=== PATIENT | female | born 1995 | race Caucasian/White ===

== ENCOUNTER 2023-01-07 07:48 | Outpatient (CLI) | payer OTHER ==
[2023-01-07 08:29] LABS: GTT GLUCOSE,FASTING 103 mg/dL (70-100)
[2023-01-07 09:38] LABS: BASOPHILS % (AUTO) 0.5 %; EOSINOPHILS # (AUTO) 0.3 10^3/uL (0.0-0.7); EOSINOPHILS % (AUTO) 4.4 %; HCT - HEMATOCRIT 40.4 % (37.0-47.0); HGB - HEMOGLOBIN 12.8 g/dL (12.0-16.0); LYMPHOCYTES # (AUTO) 2.1 10^3/uL (1.5-3.5); LYMPHOCYTES % (AUTO) 34.4 %; MEAN CORPUSCULAR HEMOGLOBIN 28.8 pg (27.0-31.0); MEAN CORPUSCULAR HGB CONC 31.7 g/dL (32.0-36.0); MEAN CORPUSCULAR VOLUME 90.8 fL (81.0-99.0); MEAN PLATELET VOLUME 10.6 fL (7.9-10.8); MONOCYTES # (AUTO) 0.3 10^3/uL (0.0-1.0); MONOCYTES % (AUTO) 4.8 %; NEUTROPHILS # (AUTO) 3.4 10^3/uL (1.5-6.6); NEUTROPHILS % (AUTO) 55.6 %; PLT - PLATELET COUNT 313 10^3/uL (130-450); RED BLOOD COUNT 4.45 10^6/uL (4.20-5.40); RED CELL DISTRIBUTION WIDTH 13.4 % (12.0-15.0); WHITE BLOOD COUNT 6.1 x10^3/uL (4.8-10.8)
[2023-01-07 10:05] LABS: CORTISOL 5.6 ug/dL
[2023-01-07 10:06] LABS: T4 (THYROXINE) 8.63 ug/dL (6.09-12.23)
[2023-01-07 10:07] LABS: THYROID STIMULATING HORMONE 0.9 uIU/mL (0.34-5.60)
[2023-01-07 10:12] LABS: FREE T4 (FREE THYROXINE) 0.8 ng/dL (0.58-1.64)
[2023-01-07 10:13] LABS: PROLACTIN 7.96 ng/mL
[2023-01-07 10:35] LABS: FOLLICLE STIMULATING HORMONE 6.79 mIU/mL
[2023-01-07 10:36] LABS: LUTEINIZING HORMONE 5.48 mIU/mL
[2023-01-07 10:49] LABS: ALBUMIN 3.7 g/dL (3.2-5.5); ALBUMIN/GLOBULIN RATIO 0.9 (1.0-2.2); BILIRUBIN,TOTAL 0.3 mg/dL (0.2-1.0); CALCIUM 8.9 mg/dL (8.5-10.3); CREATININE 0.6 mg/dL (0.4-1.0); POTASSIUM 3.7 mmol/L (3.5-5.0); TOTAL PROTEIN 7.6 g/dL (6.7-8.2)
[2023-01-07 11:15] LABS: ESTIMATED AVERAGE GLUCOSE 114 mg/dL (70-100); HEMOGLOBIN A1c% 5.6 % (4.27-6.07)
[2023-01-08 07:10] LABS: ESTRADIOL 19.3 pg/mL (.)
[2023-01-08 08:10] LABS: VITAMIN D 25-HYDROXY 20.6 ng/mL (30.0-100.0)
[2023-01-08 18:08] LABS: THYROGLOBULIN ANTIBODY <1.0 IU/mL (0.0-0.9); THYROID PEROXIDASE (TPO) AB 14 IU/mL (0-34)
[2023-01-08 20:07] LABS: SEX HORM BINDING GLOB SERUM 18.1 nmol/L (24.6-122.0); TESTOSTERONE 22 ng/dL (13-71)
[2023-01-15 13:10] LABS: REVERSE T3 SERUM 15.6 ng/dL (.)
== END 2023-01-07 07:49 | disposition home or self-care (01) ==
LOC: LAB 07:48
PROVIDERS: ATTEND Physician Assistant
DX: N94.6 Dysmenorrhea, unspecified (principal)
CPT/HCPCS: 36415; 80053; 81599; 82306; 82533; 82627; 82670; 82951; 83001; 83002; 83036; 83498; 84146; 84270; 84402; 84403; 84436; 84439; 84443; 84480; 84482; 85025; 86376; 86800

== ENCOUNTER 2023-01-22 22:13 | Outpatient (CLI) | payer OTHER ==
--- NOTE | 2023-01-23 03:25 | Ultrasound Report ---
PROCEDURE: Pelvic w/Transvaginal INDICATIONS: DYSMENORRHEA, UNSPECIFIED TECHNIQUE: Real-time scanning was performed of the pelvic organs, with image documentation. Additional endovagi nal scanning was necessary due to incomplete visualization of the adnexal and endometrial structures by transabdominal scanning. COMPARISON: None. FINDINGS: Evaluation limited by body habitus. Uterus: Uterus is anteverted/vertebral and measures approximately 5.3 x 2.6 x 3.9 cm. The nature hardy sures up to 1.0 cm in thickness. Ovaries: The right ovary measures approximately 2.3 x 2.2 x 2 cm, with a calculated ovarian volume o f 5.5 cc but is not well seen. The left ovary was not discretely visualized. No adnexal masses ident ified. Other: No pathologic free abdominal or pelvic fluid. There is a nonspecific oval hypoechoic cystic l esion along the midline in the pelvis and this appears to the bladder suggestive of a urachal cyst gi xin its location. IMPRESSION: 1. Limited study with the left ovary not identified and right ovary suboptimally imaged. No definite adnexal masses. 2. Small oval cystic lesion along the midline in the pelvis superior to the bladder is nonspecific bu t suggestive of a urachal cyst given its location. Reviewed by: Carlton Yang MD on 01/23/2023 3:23 AM PDT Approved by: Carlton Yang MD on 01/23/2023 3:23 AM PDT Station ID: [id number]
== END 2023-01-22 22:14 | disposition home or self-care (01) ==
LOC: DI 22:13
PROVIDERS: ATTEND Physician Assistant
DX: N94.6 Dysmenorrhea, unspecified (principal); R93.5 Abnormal findings on diagnostic imaging of other abdominal regions, including retroperitoneum

== ENCOUNTER 2023-02-09 12:45 | Outpatient (CLI) | payer OTHER | END 2023-02-09 13:00 | disposition home or self-care (01) | LOC: LAB.N 12:45 | PROVIDERS: ATTEND Registered Nurse | DX: Z32.00 Encounter for pregnancy test, result unknown (principal) | CPT/HCPCS: 36415; 84702 ==

== ENCOUNTER 2023-02-11 07:57 | Outpatient (CLI) | payer OTHER ==
[2023-02-11 12:22] LABS: ESTIMATED AVERAGE GLUCOSE 108 mg/dL (70-100); HEMOGLOBIN A1c% 5.4 % (4.27-6.07)
[2023-02-12 07:10] LABS: PROGESTERONE 11.8 ng/mL (.)
== END 2023-02-11 07:58 | disposition home or self-care (01) ==
LOC: LAB.N 07:57
PROVIDERS: ATTEND Physician Assistant
DX: O00.91 Unspecified ectopic pregnancy with intrauterine pregnancy (principal); O36.51 Maternal care for known or suspected placental insufficiency; O99.891 Other specified diseases and conditions complicating pregnancy; E88.81 Metabolic syndrome and other insulin resistance
CPT/HCPCS: 36415; 82670; 83036; 83525; 84144; 84443; 84702

== ENCOUNTER 2023-02-18 07:21 | Outpatient (CLI) | payer OTHER ==
[2023-02-19 07:10] LABS: PROGESTERONE 22.7 ng/mL (.)
== END 2023-02-18 07:22 | disposition home or self-care (01) ==
LOC: LAB.N 07:21
PROVIDERS: ATTEND Physician Assistant
DX: O09.91 Supervision of high risk pregnancy, unspecified, first trimester (principal); O36.51 Maternal care for known or suspected placental insufficiency; O99.281 Endocrine, nutritional and metabolic diseases complicating pregnancy, first trimester; E88.81 Metabolic syndrome and other insulin resistance
CPT/HCPCS: 36415; 82670; 84144; 84702

== ENCOUNTER 2023-03-09 07:41 | Outpatient (CLI) | payer OTHER ==
[2023-03-10 07:10] LABS: PROGESTERONE 18.1 ng/mL (.)
== END 2023-03-09 07:42 | disposition home or self-care (01) ==
LOC: LAB.N 07:41
PROVIDERS: ATTEND Physician Assistant
DX: O09.891 Supervision of other high risk pregnancies, first trimester (principal)
CPT/HCPCS: 36415; 82670; 84144